=== PATIENT | female | born 1960 | race African-American/Black ===

== ENCOUNTER 2021-09-09 16:43 | Emergency (ER) | payer OTHER ==
[~2021-09-09] VITALS: Ht 172.7 cm; Wt 130.0 kg
[~2021-09-09 16:43] MED LIST: ZOLP6.252 PO
[2021-09-09 18:11] LABS: HEMATOCRIT. 28.5 % (36.0-48.0); HEMOGLOBIN. 9.5 g/dL (12.0-16.0); MEAN CORPUSCULAR HEMOGLOBIN 32.4 pg (28.0-32.0); MEAN CORPUSCULAR VOLUME 97.2 fL (81.0-99.0); MEAN PLATELET VOLUME 8.3 fl (7.4-10.4); PLATELET 99 x1000/uL (130-400); RED BLOOD CELL COUNT 2.93 mill/uL (4.2-5.4); RED CELL DISTRIBUTION WIDTH 15.4 % (11.6-14.6)
[2021-09-09] MEDS ORDERED: ACETAMINOPHEN 325MG TABLET PO ONE (18:15)
[2021-09-09 18:49] LABS: PLATELET ESTIMATE DECREASED
[2021-09-09] MEDS ORDERED: IOHEXOL-350 100 ML BOTTLE ONE (20:14)
[2021-09-09] MEDS ORDERED: MIRTAZAPINE 15MG TABLET PO STA (22:11)
[2021-09-09] MEDS ORDERED: QUETIAPINE FUMARATE 25MG TABLET PO STA (22:11)
[2021-09-09] MEDS ORDERED: GABAPENTIN 300MG CAPSULE PO ONE (22:15)
[2021-09-10 00:14] VITALS: BP 111/58
== END 2021-09-10 00:22 | disposition short-term general hospital (02) ==
LOC: ER 16:43
DX: R07.81 Pleurodynia (principal); I10 Essential (primary) hypertension; E78.00 Pure hypercholesterolemia, unspecified; Z99.2 Dependence on renal dialysis; Z88.2 Allergy status to sulfonamides
CPT/HCPCS: 36415; 71045; 71275; 80048; 84484; 85025; 85379; 99285; Q9967